=== PATIENT | male | born 1970 | race African-American/Black ===

== ENCOUNTER 2017-04-24 22:09 | Emergency (ER) | payer MEDICAID ==
[~2017-04-24] VITALS: Ht 182.9 cm; Wt 77.1 kg
[2017-04-24 22:23] VITALS: BP 103/69
[2017-04-24 22:48] LABS: Basophils # (auto) 0 uL; Basophils % (auto) 0.4 % (0.0-2.0); CONDITION Y; Eosinophils # (auto) 0.2 uL; Eosinophils % (auto) 3.6 % (0.0-7.0); Hematocrit 31.5 % (41.0-53.0); Hemoglobin 10.1 g/dL (13.5-17.5); Lymphocytes # (auto) 1.2 uL; Lymphocytes % (auto) 20.8 % (10.0-50.0); Mean Corpuscular Hemoglobin 27.1 pg (28.0-32.0); Mean Corpuscular Hgb Conc. 32.2 g/dL (32.0-36.0); Mean Corpuscular Volume 84.3 fL (80.0-100.0); Mean Platelet Volume 7.2 fL (7.4-10.4); Monocytes # (auto) 0.5 uL; Monocytes % (auto) 8.6 % (0.0-12.0); Neutrophils # (auto) 3.7 uL; Neutrophils % (auto) 66.6 % (37.0-80.0); Platelet Count (auto) 404 10^3/uL (140-450); Red Cell Distribution Width 15.2 % (11.6-16.0); White Blood Cell 5.6 10^3/uL (4.4-10.8)
[2017-04-24 23:11] LABS: BUN/Creatinine Ratio 12.5; Calcium 8.8 mg/dL (8.5-10.1); Potassium 3.9 mmol/L (3.5-5.1)
[2017-04-24 23:14] LABS: Bilirubin, Total 0.4 mg/dL (0.2-1.0); Total Protein 8.2 g/dL (6.4-8.2)
== END 2017-04-25 05:45 | disposition left against medical advice (07) ==
LOC: ER 22:13
DX: R06.02 Shortness of breath (principal); Z53.21 Procedure and treatment not carried out due to patient leaving prior to being seen by health care provider
CPT/HCPCS: 36415; 80053; 85025

== ENCOUNTER 2017-05-19 01:59 | Emergency (ER) | payer MEDICAID ==
[~2017-05-19] VITALS: Ht 182.9 cm; Wt 65.8 kg
[2017-05-19 07:59] VITALS: BP 107/68
== END 2017-05-19 09:48 | disposition home or self-care (01) ==
LOC: ER 02:16
DX: S02.609A Fracture of mandible, unspecified, initial encounter for closed fracture (principal); Z88.0 Allergy status to penicillin; Y08.89XA Assault by other specified means, initial encounter; Y93.89 Activity, other specified; Y92.89 Other specified places as the place of occurrence of the external cause; Y99.8 Other external cause status
CPT/HCPCS: 70450; 70486; 72125